=== PATIENT | female | born 1960 | race Caucasian/White ===

== ENCOUNTER 2020-06-28 05:21 | Day surgery (SDC) | payer BC ==
[2020-06-21 11:44] LABS: CLARITY,URINE SLIGHTLY CLOUDY (Clear); COLOR,URINE YELLOW (Yellow); GLUCOSE, URINE NEGATIVE (Neg); KETONES,URINE NEGATIVE (Neg); LEUKOCYTE ESTERASE ,URINE NEGATIVE (Neg); NITRITES, URINE NEGATIVE (Neg); OCCULT BLOOD,URINE NEGATIVE (Neg); PROTEIN,URINE NEGATIVE (Neg); UROBILINOGEN,URINE 0.2 E.U/dL (0.2-1.0)
[2020-06-21 11:46] LABS: BASOPHILS # (AUTO) 0.1 X10'3 (0-0.2); BASOPHILS % (AUTO) 1.1 % (0-1); EOSINOPHILS # (AUTO) 0.1 X10'3 (0-0.9); EOSINOPHILS % (AUTO) 0.8 % (0-6); LYMPHOCYTES # (AUTO) 2.5 X10'3 (1.1-4.8); MEAN CORPUSCULAR HEMOGLOBIN 33.1 PG (27.0-31.0); MEAN CORPUSCULAR HGB CONC 33.5 g/dL (33.0-36.5); MEAN CORPUSCULAR VOLUME 98.6 FL (78-98); MEAN PLATELET VOLUME 8.6 FL (7.4-10.4); MONOCYTES # (AUTO) 0.7 X10'3 (0-0.9); MONOCYTES % (AUTO) 6.9 % (2-12); NEUTROPHILS # (AUTO) 7.1 X10'3 (1.8-7.7); NEUTROPHILS % (AUTO) 67.2 % (42-75); PRE OP HEMATOCRIT 42.9 % (35.0-45.0); PRE OP HEMOGLOBIN 14.4 g/dL (12.0-16.0); PRE OP PLATELET COUNT 306 X10'3 (140-440); RED BLOOD COUNT 4.35 X10'6 (4.20-5.60); RED CELL DISTRIBUTION WIDTH 13.9 % (11.5-14.5)
[2020-06-21 11:48] LABS: UA COLLECTION TYPE CLN CATCH MIDSTREAM
[2020-06-21 11:49] LABS: SQUAMOUS EPITHELIAL CELL,UR FEW /LPF (FEW)
[2020-06-21 11:50] LABS: BACTERIA,URINE FEW /HPF (Neg); RBC,URINE 0-2 /HPF (0-2); WBC,URINE 0-4 /HPF (0-4)
[2020-06-21 12:03] LABS: PRE OP PROTIME 10.2 SECONDS (9.0-12.0)
[2020-06-21 12:26] LABS: ALBUMIN 3.8 G/DL (3.4-5.0); ALKALINE PHOSPHATASE 90 IU/L (46-116); BLOOD UREA NITROGEN 13 MG/DL (7-18); BUN/CREATININE RATIO 17.1 (6.6-38.0); CALCIUM 9.3 MG/DL (8.5-10.1); CHLORIDE 106 MMOL/L (99-107); CREATININE 0.76 MG/DL (0.40-0.90); PRE OP ALT 49 U/L (30-65); PRE OP ANION GAP 9 (8-16); PRE OP AST 26 U/L (10-37); PRE OP BILIRUB, TOTAL 0.3 MG/DL (0.0-1.0); PRE OP GLUCOSE 100 MG/DL (70-104); PRE OP POTASSIUM 4.2 MMOL/L (3.4-5.1); PRE OP SODIUM 142 MMOL/L (135-145); TOTAL CARBON DIOXIDE 27.2 MMOL/L (24-32); TOTAL PROTEIN 7.7 G/DL (6.4-8.2); eGFR 78 ML/MIN
[2020-06-28] VITALS (19 sets, daily range): BP systolic 96–138; BP diastolic 39–90
[~2020-06-28] VITALS: Ht 160 cm; Wt 98.1 kg
[~2020-06-28 05:21] MED LIST: LEVO150T8 PO; ringers solution, lacted 1,000 ML IV SCH
[2020-06-28] MEDS ORDERED: oxyCODONE SR 10mg (sust. release) tab -2 tabs (20mg) PO ONE (05:30)
[2020-06-28] MEDS ORDERED: metoclopramide 5 mg/ml inj IV ONE (05:30)
[2020-06-28] MEDS ORDERED: acetaminophen 325mg tablet PO ONE (05:30)
[2020-06-28] MEDS ORDERED: Cefazolin 2GM/100ML NS IVPB 100 ML IV ONE (05:30)
[2020-06-28] MEDS ORDERED: vancomycin 1,500 MG in NS 300ml IV soln IV ONE (05:30)
[2020-06-28] MEDS ORDERED: tranexamic acid 1gm/0.7% sal. 100 ML IV ONE ×2 (05:30→15:00)
[2020-06-28] MEDS ORDERED: gabapentin 300mg capsule PO ONE (05:30)
[2020-06-28] MEDS ORDERED: famotidine 20mg tablet PO ONE (05:30)
[2020-06-28] MEDS ORDERED: celeCOXIB 100mg capsule PO ONE (05:30)
[2020-06-28] MEDS ORDERED: diphenhydrAMINE 25mg capsule PO PRN ×2 (06:55)
[2020-06-28] MEDS ORDERED: HYDROmorphone inj. 0.5 MG/0.5 ML DISP.SYRIN IV PRN (06:55)
[2020-06-28] MEDS ORDERED: ondansetron/PF 4mg/2ml inj IV PRN ×2 (06:55→09:35)
[2020-06-28] MEDS ORDERED: bisacodyl 10mg suppository rectal RC PRN (06:55)
[2020-06-28] MEDS ORDERED: magnesium hydroxide 30ml (MOM) UD suspension PO PRN (06:55)
[2020-06-28] MEDS ORDERED: acetaminophen 325mg tablet PO PRN (06:55)
[2020-06-28] MEDS ORDERED: HYDROmorphone 1 mg/ml syringe IV PRN (06:55)
[2020-06-28] MEDS ORDERED: ketorolac trometh. 30mg/ml inj. ONE ×2 (07:13→09:06)
[2020-06-28] MEDS ORDERED: vasoPRESSIN 20 units/ml inj. ONE (07:14)
[2020-06-28] MEDS ORDERED: cloNIDine hcl/PF 100mcg/ml inj ONE (07:14)
[2020-06-28] MEDS ORDERED: epiNEPHrine 1 mg/ml inj ONE (07:14)
[2020-06-28] MEDS ORDERED: BUPIVAcaine 0.5% inj/PF 30 ML ONE ×2 (07:14→08:16)
[2020-06-28] MEDS ORDERED: vancomycin 1,000mg inj ONE (07:15)
[2020-06-28] MEDS: ascorbic acid 500mg tablet PO SCH ×2 (08:00→20:19)
[2020-06-28] MEDS: gabapentin 300mg capsule PO SCH ×4 (08:00→20:18)
[2020-06-28] MEDS: multivitamins, therapeutics tablet PO SCH (08:00)
[2020-06-28] MEDS: levoTHYROXINE 75mcg tablet PO SCH (08:00)
[2020-06-28] MEDS: aspirin 325mg tablet PO SCH (08:30)
[2020-06-28] MEDS ORDERED: fentaNYL/PF 50MCG/1 ML 2ML syringe ONE (08:36)
[2020-06-28] MEDS ORDERED: MIDAZolam 1 MG/ML 5ML VIAL ONE (08:36)
[2020-06-28] MEDS ORDERED: BUPIVAcaine 0.5% inj/PF 60 ML ONE (09:06)
[2020-06-28] MEDS ORDERED: ringers solution, lacted 1,000 ML IV SCH (09:35)
[2020-06-28] MEDS ORDERED: morphine 4 MG/ML inj SYRINge IV PRN (09:35)
[2020-06-28] MEDS ORDERED: morphine 2 MG/ML inj. syringe IV PRN (09:35)
[2020-06-28] MEDS ORDERED: ROPIVAcaine 0.2% (10 MG/5 ML) BOLUS INJECTION ADDCANAL PRN (09:35)
[2020-06-28] MEDS ORDERED: proCHLORperazine 10 MG/2 ml inj IV PRN (09:35)
[2020-06-28] MEDS ORDERED: meperidine/PF 25mg/ml syringe IV PRN ×3 (09:35)
[2020-06-28] MEDS ORDERED: ROPIVAcaine 0.5% (5mg/ml) 30ml vial ONE (09:52)
--- NOTE | 2020-06-28 10:35 | NUR ---
PATIENT ARRIVED TO [facility]ERY VIA BED WITH DR LORENZO, ANESTHESIA REPORT GIVEN. PATIENT A&OX4, DENIES PAIN, V/S WNL, NEUROVASCULAR CHECKS INTACT-+2 PULSES IN BLE, 18G PIV LUE , DRESSING TO RIGHT KNEE CDI W/MAXIME DRSG AND COLD POWDER PACK W/ SCDS ON. SENSATION T-9.
--- NOTE | 2020-06-28 12:05 | NUR ---
ORDERED KNEE XRAY DONE, PATIENT A&OX4, DENIES PAIN, V/S WNL, NEUROVASCULAR CHECKS INTACT-+2 PULSES BLE, DRESSING TO RIGHT KNEE W/ MAXIME AND COLD POWDER PACK, ON-Q CATHETER IN PLACE-NOT HOOKE DUP YET BECAUSE OF DELAY IN PHARMACY, REQUESTED MED TO BE SENT TO FLOOR, SCDS ON. NO F/C-PT BEGINNING TO REGAIN SENSATION TO BLE, ABLE TO MOVE TOES BILATERALLY. PATIENT TAKEN TO RM 4023B WITH ALL BELONGINGS AND HOOKED UP TO MONITORS IN ROOM AND REPORT GIVEN TO PRINTING WORKER SUPERVISOR TRISTA WHO HAS TAKEN OVER PATIENT CARE. BED LOW AND LOCKED, CALL LIGHT PRESENT AND VSS.
[2020-06-28] MEDS: ROPIVAcaine 0.2%/PF PUMP/bolus 550 ML ADDCANAL SCH (12:40)
[2020-06-28] MEDS: potassium cl 20mEq in 1/2 NS 1,000 ML IV SCH ×2 (14:19→14:55)
[2020-06-28] MEDS: oxyCODONE/APAP 10/325mg tablet PO PRN (14:30)
[2020-06-28] MEDS: Cefazolin 2GM/100ML NS IVPB 100 ML IV SCH (16:19)
--- NOTE | 2020-06-28 18:44 | NUR ---
Problems reprioritized. Patient report given, questions answered & plan of care reviewed with BRENNA WHITTINGTON.
[2020-06-28] MEDS ORDERED: VANCOMYCIN 1,500MG inj. 1,500 MG in normal saline 500ml IV soln 500 ML IV SCH (20:00)
[2020-06-28] MEDS ORDERED: sennosides 8.6mg tablet PO SCH (21:00)
[2020-06-29] MEDS: Cefazolin 2GM/100ML NS IVPB 100 ML IV SCH (00:02)
[2020-06-29] MEDS: potassium cl 20mEq in 1/2 NS 1,000 ML IV SCH ×2 (00:04→06:55)
[2020-06-29] MEDS: oxyCODONE/APAP 10/325mg tablet PO PRN ×4 (00:52→13:19)
[2020-06-29 02:00] VITALS: BP 93/45
[2020-06-29 06:03] LABS: BASOPHILS % (AUTO) 0.5 % (0-1); EOSINOPHILS # (AUTO) 0.2 X10'3 (0-0.9); EOSINOPHILS % (AUTO) 2.4 % (0-6); HEMATOCRIT 35.6 % (35.0-45.0); HEMOGLOBIN 11.9 g/dl (12.0-16.0); LYMPHOCYTES # (AUTO) 1.8 X10'3 (1.1-4.8); LYMPHOCYTES % (AUTO) 20.2 % (21-51); MEAN CORPUSCULAR HGB CONC 33.4 g/dL (33.0-36.5); MEAN PLATELET VOLUME 8.5 FL (7.4-10.4); MONOCYTES # (AUTO) 1.1 X10'3 (0-0.9); NEUTROPHILS # (AUTO) 5.8 X10'3 (1.8-7.7); NEUTROPHILS % (AUTO) 64.9 % (42-75); PLATELET COUNT 239 X10'3 (140-440); RED CELL DISTRIBUTION WIDTH 13.7 % (11.5-14.5); WHITE BLOOD COUNT 8.9 X10'3 (4.5-11.0)
[2020-06-29 06:10] LABS: ANION GAP 8 (8-16); CHLORIDE 105 MMOL/L (99-107); POTASSIUM 4.8 MMOL/L (3.5-5.1); SODIUM 140 MMOL/L (135-145); TOTAL CARBON DIOXIDE 26.7 MMOL/L (24-32)
[2020-06-29] MEDS: gabapentin 300mg capsule PO SCH ×2 (07:08→13:19)
[2020-06-29] MEDS: levoTHYROXINE 75mcg tablet PO SCH (07:09)
[2020-06-29] MEDS: multivitamins, therapeutics tablet PO SCH (07:10)
[2020-06-29] MEDS: ascorbic acid 500mg tablet PO SCH (07:11)
[2020-06-29] MEDS: aspirin 325mg tablet PO SCH (07:12)
[2020-06-29 07:40] VITALS: BP 106/62
[2020-06-29 10:00] VITALS: BP 119/71
--- NOTE | 2020-06-29 11:14 | NUR ---
acting as clinical instructor, i reviewed professional nursing tutor charting
[2020-06-29] MEDS ORDERED: gabapentin capsule PO (12:00)
--- NOTE | 2020-06-29 12:37 | NUR ---
Joint Replacement Consult: Pt s/p R IVANNA PO 75-100% avg first regular diet meals meeting needs so far. LBM 06/27. No nutrition concerns at this time. Addendum: 06/29/20 at [address] Amended: Links added.
[2020-06-29] MEDS ORDERED: CELE100C98 PO (12:49)
[2020-06-29] MEDS ORDERED: ASPI-1 PO (12:49)
--- NOTE | 2020-06-29 13:05 | NUR ---
Waiting on OnQ pump refill and walker for discharge.
[2020-06-29] MEDS: ROPIVAcaine 0.2%/PF PUMP/bolus 550 ML ADDCANAL SCH (13:11)
--- NOTE | 2020-06-29 13:39 | NUR ---
Pt. wants to discharge NOW. Does not want to wait for walker. Called CM. CM states she will call [facility] to see if pt. can p/u walker, otherwise pt.'s walker could be delivered to [address] [place] [address]. Discussed fall risks of not having a walker on discharge with pt. She is aware, but regardless would like to leave now as her ride is "waiting around town" for her.
--- NOTE | 2020-06-29 14:05 | NUR ---
DISCHARGE NOTE: Reviewed discharge instructions with pt. Good verbal feedback. She has medications at home already and also has appointment with [facility]. Gave contact info for [facility] office. Removed IV, pressure bandage applied, no s/sx bleeding noted, cannula of IV intact. Pt. left with her belongings. Her friend picked her up in a private vehicle to discharge home. Pt. left with a new On Q ball and is aware of how to use it. Instructions given on MAXIME drain and pt. left with coolpaks as well. She had the opportunity to ask as many questions as she wanted and was given written education on post-operative care specific to her surgery. As last note states, pt. refused to wait on walker delivery to discharge. [facility] misunderstood last phone call and walker was delivered to hospital. Talala called [facility] and let [facility]'s delivery nurse know that pt's walker supposed to be delivered to address in last note.
[2020-06-29] MEDS ORDERED: celeCOXIB 100mg capsule PO SCH (20:00)
== END 2020-06-29 14:15 | disposition home or self-care (01) ==
LOC: PAS 05:21 → ORTHO 4S 12:03 → PAS 06-29 14:15
PROVIDERS: ATTEND Orthopaedic Surgery
DX: M17.11 Unilateral primary osteoarthritis, right knee (principal); M21.161 Varus deformity, not elsewhere classified, right knee; E03.9 Hypothyroidism, unspecified; E66.9 Obesity, unspecified; Z68.36 Body mass index [BMI] 36.0-36.9, adult; Z88.2 Allergy status to sulfonamides; Z79.899 Other long term (current) drug therapy; Z72.89 Other problems related to lifestyle; G89.18 Other acute postprocedural pain; Z79.01 Long term (current) use of anticoagulants; Z20.822 Contact with and (suspected) exposure to COVID-19; F17.210 Nicotine dependence, cigarettes, uncomplicated; Z98.890 Other specified postprocedural states; Z90.710 Acquired absence of both cervix and uterus
CPT/HCPCS: 27447; 36415; 64448; 73560; 76937; 80051; 80053; 81001; 82948; 84443; 85025; 85610; 85730; 86885; 86900; 86901; 87081; 97110; 97116; 97161; 97530; C1713; C1776; J0171; J0690; J0735; J1170; J1885; J2250; J2765; J2795; J3010; J3370; J7040; J7120; U0003; A4215; A7000; G0378; J3480; J3490